=== PATIENT | female | born 1980 | race Caucasian/White ===

== ENCOUNTER 2019-04-07 03:16 | Inpatient (IN) | payer MEDICAID ==
[~2019-04-07] VITALS: Ht 162.6 cm; Wt 68.0 kg
[2019-04-07] MEDS ORDERED: LR 1,000 ML IV ONE (07:14)
[2019-04-07] MEDS ORDERED: CEFAZOLIN 2 GM IVPB PREMIX 50 ML IV ONE (07:15)
[2019-04-07 07:32] LABS: BILIRUBIN,URINE NEGATIVE (NEGATIVE); BLOOD, URINE NEGATIVE (NEGATIVE); CLARITY/URINE SL HAZY (CLEAR); COLOR,URINE YELLOW (YELLOW); GLUCOSE,URINE NEGATIVE (NEGATIVE); KETONES,URINE NEGATIVE (NEGATIVE); LEUKOCYTE ESTERASE ,URINE NEGATIVE (NEGATIVE); NITRITE, URINE NEGATIVE (NEGATIVE); PH,URINE 5.5 (5.0-8.0); PROTEIN URINE NEGATIVE (NEGATIVE); UROBILINOGEN,URINE 0.2 (0.2-1.0)
[2019-04-07 07:33] LABS: BASOPHILS % (AUTO) 0.5 % (0.0-2.0); EOSINOPHILS # (AUTO) 0.1 K/uL (0.0-0.4); EOSINOPHILS % (AUTO) 0.8 % (0.0-4.0); HEMATOCRIT 36.5 % (36-48); HEMOGLOBIN 12.3 g/dL (12.0-16.0); LYMPHOCYTES # (AUTO) 1.4 K/uL (1.0-5.5); LYMPHOCYTES % (AUTO) 18.4 % (20.5-51.5); MEAN CORPUSCULAR HEMOGLOBIN 30 pg (27-31); MEAN CORPUSCULAR HGB CONC 34 % (32-36); MEAN CORPUSCULAR VOLUME 89 fL (79.0-98.0); MONOCYTES # (AUTO) 0.4 K/uL (0.0-1.0); MONOCYTES % (AUTO) 5.4 % (1.7-9.3); NEUTROPHILS # (AUTO) 5.6 K/uL (1.8-7.7); NEUTROPHILS % (AUTO) 74.9 % (40.0-70.0); PLATELET COUNT (AUTO) 223 K/uL (130-430); RED BLOOD CELL COUNT(AUTO) 4.12 MIL/uL (4.2-6.2); RED CELL DISTRIBUTION WIDTH 13.1 % (9.0-15.0); WHITE BLOOD COUNT (AUTO) 7.5 K/uL (4.8-10.8)
[2019-04-07] MEDS ORDERED: NALOXONE HCL 0.4 MG/ML AMP (NARCAN) IVP PRN ×2 (08:15)
[2019-04-07] MEDS ORDERED: DIPHENHYDRAMINE INJ 50 MG/ML VIAL IVP PRN (08:15)
[2019-04-07] MEDS ORDERED: KETOROLAC TROMETHAMINE 60 MG/2 ML VIAL IM PRN (08:15)
[2019-04-07] MEDS ORDERED: MORPHINE SULFATE 10MG/10ML PF AMP SP SCH (08:15)
[2019-04-07] MEDS ORDERED: ONDANSETRON HCL 4 MG/2 ML VIAL IVP PRN (08:15)
[2019-04-07] MEDS ORDERED: NALBUPHINE HCL 10 MG/ML AMP IVP PRN (08:15)
[2019-04-07] MEDS ORDERED: fentaNYL CITRATE/PF 100 MCG/2 ML AMP IVP PRN ×2 (08:15)
[2019-04-07] MEDS ORDERED: OXYTOCIN 10 UNIT/ML VIAL ONE (08:20)
[2019-04-07] MEDS ORDERED: OXYTOCIN/0.9 % SODIUM CHLORIDE 1,000 ML IV ONE (08:37)
[2019-04-07] MEDS ORDERED: LANOLIN 7 GM OINT. TP PRN (08:45)
[2019-04-07] MEDS ORDERED: NS IRRIG SOLN 1000 ML IR ONE (08:45)
[2019-04-07] MEDS ORDERED: LR 1,000 ML IV.SOLN IV ONE (08:45)
[2019-04-07] MEDS ORDERED: BUPIVACAINE /DEX PF 0.75% SPINAL 2 ML AMP INJ ONE (08:45)
[2019-04-07] MEDS ORDERED: SENNOSIDES/DOCUSATE SODIUM 1 TAB TABLET(SENOKOT-S) PO PRN (08:45)
[2019-04-07] MEDS ORDERED: MORPHINE SULFATE 10MG/10ML PF AMP EP ONE (08:45)
[2019-04-07] MEDS ORDERED: MEPERIDINE HCL/PF 50 MG/ML AMP IVP PRN (08:45)
[2019-04-07 13:22] VITALS: BP_SYST 124
[2019-04-07] MEDS: CEFAZOLIN 1 GM IVPB PREMIX 50 ML IV SCH ×2 (14:17→20:06)
[2019-04-07] MEDS: DOCUSATE SODIUM 100 MG CAPSULE PO PRN (20:06)
[2019-04-07] MEDS: SIMETHICONE 80 MG TAB.CHEW PO PRN (20:07)
[2019-04-07] MEDS ORDERED: TEMAZEPAM 15 MG CAPSULE PO PRN (21:00)
[2019-04-08] MEDS: CEFAZOLIN 1 GM IVPB PREMIX 50 ML IV SCH (01:51)
[2019-04-08] MEDS: SIMETHICONE 80 MG TAB.CHEW PO PRN ×3 (01:51→23:12)
[2019-04-08] MEDS: DOCUSATE SODIUM 100 MG CAPSULE PO PRN ×2 (01:52→23:12)
[2019-04-08] MEDS: OXYCODONE/ACETAMINOPHEN 5-325 TABLET PO PRN ×3 (02:02→23:11)
[2019-04-08 06:14] LABS: BASOPHILS % (AUTO) 0.3 % (0.0-2.0); EOSINOPHILS # (AUTO) 0.1 K/uL (0.0-0.4); EOSINOPHILS % (AUTO) 0.5 % (0.0-4.0); HEMATOCRIT 36.9 % (36-48); HEMOGLOBIN 12.4 g/dL (12.0-16.0); LYMPHOCYTES # (AUTO) 1.4 K/uL (1.0-5.5); LYMPHOCYTES % (AUTO) 14.4 % (20.5-51.5); MEAN CORPUSCULAR HEMOGLOBIN 30 pg (27-31); MEAN CORPUSCULAR HGB CONC 34 % (32-36); MEAN CORPUSCULAR VOLUME 89 fL (79.0-98.0); MONOCYTES # (AUTO) 0.7 K/uL (0.0-1.0); MONOCYTES % (AUTO) 6.5 % (1.7-9.3); NEUTROPHILS # (AUTO) 7.9 K/uL (1.8-7.7); NEUTROPHILS % (AUTO) 78.3 % (40.0-70.0); PLATELET COUNT (AUTO) 224 K/uL (130-430); RED BLOOD CELL COUNT(AUTO) 4.13 MIL/uL (4.2-6.2); RED CELL DISTRIBUTION WIDTH 13.3 % (9.0-15.0)
[2019-04-09] MEDS: OXYCODONE/ACETAMINOPHEN 5-325 TABLET PO PRN ×2 (06:06→12:29)
[2019-04-09] MEDS: SIMETHICONE 80 MG TAB.CHEW PO PRN (12:29)
[2019-04-09] MEDS: MEASLES,MUMPS&RUBELLA VACC/PF 12500 UNIT/0.5 ML VIAL SUBQ PRN ×2 (15:40→16:03)
== END 2019-04-09 15:50 | disposition home or self-care (01) | DRG 540 ==
LOC: SPU 07:00
PROVIDERS: ADMIT Specialist; ATTEND Specialist
PROC: 10D00Z1 Extraction of Products of Conception, Low, Open Approach (ICD-10-PCS; principal; 2019-04-07 07:40)
DX: O34.211 Maternal care for low transverse scar from previous cesarean delivery (principal); Z37.0 Single live birth; Z3A.39 39 weeks gestation of pregnancy
CPT/HCPCS: 36415; 81003; 85025; 86592; 86886; 86900; 86901; 94760; J0690; J2274; J2590; J3490; J7120

== ENCOUNTER 2021-06-06 16:59 | Emergency (ER) | payer MEDICAID ==
[~2021-06-06] VITALS: Ht 157.5 cm; Wt 74.8 kg
[2021-06-06 17:00] VITALS: BP_SYST 140
--- NOTE | 2021-06-06 17:00 | NUR ---
Pt to bed 8 for evaluation. Pt gowned and attached to size marker.
--- NOTE | 2021-06-06 17:05 | NUR ---
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 Pt reports that she had SOB with her chest pressure but it has since resolved. Pt was experiencing stress and anxiety when the pain began. Pt reports no prior medical history.
--- NOTE | 2021-06-06 17:08 | NUR ---
EKG completed with results given to Dr. Farah for interpretation.
--- NOTE | 2021-06-06 17:11 | NUR ---
Dr. Farah at bedside to assess.
--- NOTE | 2021-06-06 17:12 | NUR ---
Report given to JONATHAN Gant who will assume care.
[2021-06-06] MEDS ORDERED: KETOROLAC TROMETHAMINE 60 MG/2 ML VIAL IM ONE (17:30)
[2021-06-06] MEDS ORDERED: IBUP-1969 PO (18:13)
[2021-06-06 18:22] VITALS: BP_SYST 140
--- NOTE | 2021-06-06 18:23 | NUR ---
Patient given written and verbal discharge instructions and verbalizes understanding. ER MD discussed with patient the results and treatment provided. Patient in stable condition. ID arm band removed. Rx of Ibuprofen given. Patient educated on pain management and to follow up with PMD. Pain Scale 2/10. Opportunity for questions provided and answered. Medication side effect fact sheet provided.
== END 2021-06-06 18:23 | disposition home or self-care (01) ==
LOC: SED 16:59
DX: M54.6 Pain in thoracic spine (principal); Z79.899 Other long term (current) drug therapy
CPT/HCPCS: 72072; 93005; 96372; 99283; J1885